=== PATIENT | female | born 1970 | race Two or more races ===

== ENCOUNTER → 2016-08-06 | Outpatient (CLI) | payer OTHER ==
--- NOTE | ~2016-08-06 | MY11 ---
[facility] A Service of [facility] RADIOLOGY TEXT RESULTS PATIENT: AUDREY GARZA LOCATION: [facility] : [birth year] UNIT #: [id number] AGE: [address]: Hima Estrada MD SEX: F ORDER DR: [id number] [facility]. [place], [place] [address] [id number] O MR#: [id number] Acc #: [id number] NAME: AUDREY GARZA : 1970 SEX: F STUDY DATE/TIME: 08/06/2016 10:51 UNIT: [facility] ROOM: STUDY DESCRIPTION: MY Mammogram Screening Dig Siddharth Attending Physician: Hima Estrada M.D. Referring Physician: Hima Estrada M.D. Ordering Physician: Hima Estrada M.D. Primary Care Physician: Hima Estrada M.D. MEDICAL IMAGING REPORT This report is preliminary unless electronic signature is present EXAM Bilateral digital screening mammogram with CAD INDICATIONS Routine screening. No current complaints. No family history of breast cancer. COMPARISON No old studies FINDINGS MLO and CC digital views of each breast were obtained. The exam was reviewed with an FDA-approved CAD device. The breasts are heterogenously dense. There are no masses or suspicious calcifications. IMPRESSION No evidence of malignancy. Patient's over the age of 40 are entered into a reminder system with target due date for the next mammogram. A result letter will be sent to the patient. BIRADS: 1 Negative Dictated by... Renan Hu M.D. THIS IS AN ELECTRONICALLY VERIFIED REPORT Renan Hu M.D. at 08/06/2016 1:22 PM FEL/to TD: 08/06/2016 12:59 [facility] A Service of [facility] & [facility] [place] RADIOLOGY TEXT RESULTS PATIENT: AUDREY GARZA LOCATION: [facility] : [birth year] UNIT #: [id number] AGE: [address]: Hima Estrada MD SEX: F ORDER DR: JOB #: [id number] MEDICAL IMAGING REPORT Page 1 of 1 COPY
== END | disposition home or self-care (01) ==
LOC: CWCC 08-01 10:15
DX: Z12.31 Encounter for screening mammogram for malignant neoplasm of breast (principal)
CPT/HCPCS: G0202